=== PATIENT | female | born 1965 | race Two or more races ===

== ENCOUNTER 2017-02-23 20:16 | Emergency (ER) | payer OTHER ==
[~2017-02-23 20:16] MED LIST: ASPIR 8181 MG PO; INDERAL LA80 MG PO; LAC PO; MAC100 PO; SIMVASTATIN20 M1 PO; VITAMIN-D1000 IU PO
[2017-02-23 20:19] VITALS: BP 158/91
== END 2017-02-23 22:14 | disposition left against medical advice (07) ==
LOC: ED 20:16
DX: Z53.21 Procedure and treatment not carried out due to patient leaving prior to being seen by health care provider (principal)